=== PATIENT | female | born 1955 | race Caucasian/White ===

== ENCOUNTER 2016-07-06 08:37 | Day surgery (SDC) | payer BC ==
[2016-07-06] MEDS ORDERED: LACTATED RINGERS 1,000 ML IV ONE ×2 (09:16→11:40)
[2016-07-06] MEDS ORDERED: MIDAZOLAM 2 MG/2 ML VIAL IVP ONE (10:59)
[2016-07-06] MEDS ORDERED: fentaNYL 250 MCG/5 ML VIAL IVP ONE (10:59)
== END 2016-07-06 08:38 | disposition home or self-care (01) ==
PROC: 0DBP8ZZ Excision of Rectum, Via Natural or Artificial Opening Endoscopic (ICD-10-PCS; principal; 2016-07-06 09:45)
DX: Z12.11 Encounter for screening for malignant neoplasm of colon (principal); K62.1 Rectal polyp; K64.8 Other hemorrhoids; I10 Essential (primary) hypertension; G47.30 Sleep apnea, unspecified
CPT/HCPCS: 45380; J3010; J7120

== ENCOUNTER 2016-08-24 10:07 | Day surgery (SDC) | payer BC ==
[2016-08-24] MEDS ORDERED: MAGNESIUM CITRATE 296 ML BOTTLE PO STA (13:07)
[2016-08-24] MEDS ORDERED: SALINE ENEMA 133 ML BOTTLE RC STA (13:08)
[2016-08-24] MEDS ORDERED: fentaNYL 250 MCG/5 ML VIAL IVP ONE (14:28)
[2016-08-24] MEDS ORDERED: MIDAZOLAM 2 MG/2 ML VIAL IVP ONE (14:28)
[2016-08-24] MEDS ORDERED: LACTATED RINGERS 1,000 ML IV ONE (14:29)
== END 2016-08-24 10:08 | disposition home or self-care (01) ==
PROC: 0DJD8ZZ Inspection of Lower Intestinal Tract, Via Natural or Artificial Opening Endoscopic (ICD-10-PCS; principal; 2016-08-24 12:00)
DX: Z12.11 Encounter for screening for malignant neoplasm of colon (principal); K64.8 Other hemorrhoids; F32.9 Major depressive disorder, single episode, unspecified; F17.210 Nicotine dependence, cigarettes, uncomplicated
CPT/HCPCS: 45378; A9270; J7120

== ENCOUNTER 2016-10-09 09:19 | Outpatient (CLI) | payer BC | END 2016-10-09 09:20 | disposition home or self-care (01) | DX: N64.4 Mastodynia (principal) ==

== ENCOUNTER 2016-10-10 11:49 | Outpatient (CLI) | payer BC ==
[2016-10-10] MEDS ORDERED: IOPAMIDOL-300 100 ML VIAL IVP ONE (13:04)
[2016-10-10] MEDS ORDERED: IOPAMIDOL-300 50 ML VIAL PO ONE (20:40)
== END 2016-10-10 11:50 | disposition home or self-care (01) ==
DX: R91.8 Other nonspecific abnormal finding of lung field (principal); R10.9 Unspecified abdominal pain
CPT/HCPCS: 36415; 74177; 82565; Q9967

== ENCOUNTER 2017-03-04 06:23 | Day surgery (SDC) | payer BC ==
[2017-03-04] MEDS ORDERED: LACTATED RINGERS 1,000 ML IV ONE ×2 (07:07→09:25)
[2017-03-04] MEDS ORDERED: fentaNYL 100 MCG/2 ML VIAL IVP ONE (07:34)
[2017-03-04] MEDS ORDERED: MIDAZOLAM 2 MG/2 ML VIAL IVP ONE (07:34)
[2017-03-04] MEDS ORDERED: ONDANSETRON 4 MG/2 ML VIAL IVP ONE (07:34)
[2017-03-04] MEDS ORDERED: PROPOFOL 200 MG/20 ML VIAL IVP ONE (09:30)
[2017-03-04] MEDS ORDERED: LIDOCAINE-MPF 2% 5 ML VIAL IM ONE (09:30)
[2017-03-04] MEDS: fentaNYL 100 MCG/2 ML VIAL ONE ×2 (10:05→10:09)
[2017-03-04] MEDS ORDERED: HYDROmorphone 1 MG/ML AMP ONE (10:17)
[2017-03-04 11:19] VITALS: BP 136/78
== END 2017-03-04 06:24 | disposition home or self-care (01) ==
LOC: SDS 06:23
PROVIDERS: ATTEND Surgery
PROC: 0DBP8ZX Excision of Rectum, Via Natural or Artificial Opening Endoscopic, Diagnostic (ICD-10-PCS; principal; 2017-03-04 07:30)
DX: Z12.11 Encounter for screening for malignant neoplasm of colon (principal); K62.1 Rectal polyp
CPT/HCPCS: 45380; 88305; J7120; J1170

== ENCOUNTER 2018-03-01 13:48 | Outpatient (CLI) | payer BC ==
--- NOTE | 2018-03-01 16:45 | Ultrasound Report ---
Reason: SCREEN, CVD Procedure Date: 03/01/2018 Accession Number: [id number] / [id number] Procedure: US - Carotid Doppler Complete CPT Code: FULL RESULT: EXAM: BILATERAL CAROTID AND VERTEBRAL ARTERY DUPLEX DOPPLER ULTRASOUND: EXAM DATE: 03/01/2018 03:41 PM CLINICAL HISTORY: Screen, cerebrovascular disease. COMPARISON: None. TECHNIQUE: Grayscale imaging, color Doppler, and duplex spectral Doppler were used to evaluate the carotid and vertebral arteries bilaterally. Static images were obtained. FINDINGS: Shadowing hypoechoic plaque is identified in both carotid bulb regions, subjectively less than 50% where assessable. No hemodynamically significant plaque is identified in the right or left common or internal carotid arteries. Normal antegrade flow is present in bilateral vertebral arteries. VELOCITIES (cm/sec): Right CCA mid: PSV 68 cm/sec CCA dist: PSV 65 cm/sec ICA prox: PSV 97 cm/sec, EDV 31 cm/sec ICA mid: PSV 76 cm/sec, EDV 29 cm/sec ICA dist: PSV 87 cm/sec, EDV 34 cm/sec ECA: PSV 113 cm/sec Vert: PSV 49 cm/sec ICA/CCA: 1.49 Left CCA mid: PSV 64 cm/sec CCA dist: PSV 62 cm/sec ICA prox: PSV 81 cm/sec, EDV 31 cm/sec ICA mid: PSV 76 cm/sec, EDV 33 cm/sec ICA dist: PSV 77 cm/sec, EDV 29 cm/sec ECA: PSV 119 cm/sec Vert: PSV 49 cm/sec ICA/CCA: 1.30 ICA diameter stenosis: Right: <50% by velocity and <70% by NASCET criteria. Left: <50% by velocity and <70% by NASCET criteria. IMPRESSION: 1. No hemodynamically significant bilateral carotid artery plaquing. 2. In the right carotid artery there are no elevated carotid artery velocities to suggest hemodynamically significant stenosis. 3. In the left carotid artery there are no elevated carotid artery velocities to suggest hemodynamically significant stenosis. 4. Normal antegrade flow is present in bilateral vertebral arteries. General Recommendations: Stenosis =50% ICA - Follow-up ultrasound 6-12 months Stenosis <50% ICA - High Risk Patient with plaque - Follow-up ultrasound 1-2 years Normal Study but High Risk Patient - Follow-up ultrasound 3-5 years Management recommendations and diagnostic criteria are based on current IAC endorsed standards in Carotid Artery Stenosis: Grayscale and Doppler Ultrasound Diagnosis. Validated velocity measurements with angiographic measurements and velocity criteria are extrapolated from diameter data as defined by the Society of Radiologists in Ultrasound Consensus Conference Radiology 2003; 229;340-346. RADIA
== END 2018-03-01 13:49 | disposition home or self-care (01) ==
LOC: DI 13:48
PROVIDERS: ATTEND Naturopath
DX: Z13.6 Encounter for screening for cardiovascular disorders (principal)
CPT/HCPCS: 93880

== ENCOUNTER 2018-06-22 23:09 | Emergency (ER) | payer BC ==
[2018-06-22 23:17] VITALS: BP 169/65
--- NOTE | 2018-06-22 23:30 | ED Physician Documentation ---
History of Present Illness - Stated complaint Stated Complaint: R FOOT PX - Chief complaint Chief Complaint: Ext Problem - History obtained from History obtained from: Patient - History of Present Illness Timing: Today Pain level max: 6 Pain level now: 4 - Additonal information Additional information: Patient states that she developed right foot pain tonight. Does not recall any injury. Worse with walking and better with rest. 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 Systems Constitutional: denies: Fever, Chills Ears: denies: Ear pain Nose: denies: Rhinorrhea / runny nose, Congestion Respiratory: denies: Cough GI: denies: Abdominal Pain, Nausea, Vomiting, Diarrhea Skin: denies: Rash Musculoskeletal: denies: Neck pain, Back pain Neurologic: denies: Headache PD PAST MEDICAL HISTORY - Past Medical History Cardiovascular: None Respiratory: Sleep apnea Endocrine/Autoimmune: None GI: Colon polyps : None HEENT: Chronic vision loss Psych: Depression Musculoskeletal: Osteoarthritis Derm: None - Past Surgical History Past Surgical History: No General: Colonoscopy Ortho: Other /IN STORE DEMONSTRATOR: Other - Present Medications Home Medications: Ambulatory Orders Medication Instructions Recorded Confirmed Trazodone HCl 100 mg PO DAILY 07/23/14 07/06/16 Cholecalciferol (Vitamin D3) 4,000 unit PO DAILY 07/06/16 07/06/16 [Vitamin D] Ibuprofen [Motrin] 800 mg PO Q8H PRN #30 tablet 06/23/18 - Allergies Allergies/Adverse Reactions: Allergies Allergy/AdvReac Type Severity Reaction Status Date / Time bupropion HCl * Allergy Hives Verified 06/22/18 23:17 [From Wellbutrin] - Social History Does the pt smoke?: No Smoking Status: Never smoker Does the pt drink ETOH?: No - Immunizations Immunizations are current?: Yes PD ED PE NORMAL - Vitals Vital signs reviewed: Yes - General General: Alert and oriented X 3, No acute distress - HEENT HEENT: Moist mucous membranes - Neck Neck: Supple, no meningeal sign - Derm Derm: Warm and dry, No rash - Extremities Extremities: Other (Mild swelling and ecchymosis to the lateral aspect of the dorsum of the right foot. Mild tenderness along the fourth metatarsal. Neurovascularly intact. Otherwise normal examination of the foot and ankle) - Neuro Neuro: Alert and oriented X 3 Results - Vitals Vitals: Vital Signs - 24 hr 06/22/18 23:13 Temperature 36.0 C L Heart Rate 81 Respiratory 16 Rate Blood Pressure 169/65 H O2 Saturation 98 Oxygen O2 Source Room air - Rads (name of study) R foot xray Radiology: Prelim report reviewed, EMP read contemporaneously, See rad report (normal) PD MEDICAL DECISION MAKING - ED course Complexity details: reviewed results, re-evaluated patient, considered differential, d/w patient ED course: 63-year-old female with right foot pain of unclear etiology. Possible strain versus stress fractures? Placed in a postoperative shoe for comfort. Will utilize Motrin at home for pain. Neurovascular intact. Negative x-ray. Patient counseled regarding signs and symptoms for which I believe and urgent re-evaluation would be necessary. Patient with good understanding of and agreement to plan and is comfortable going home at this time This document was made in part using voice recognition software. While efforts are made to proofread this document, sound alike and grammatical errors may occur. Departure - Departure Disposition: 01 Home, Self Care Clinical Impression: Right foot strain Qualifiers: Encounter type: initial encounter Qualified Code(s): S96.911A - Strain of unspecified muscle and tendon at ankle and foot level, right foot, initial encounter Condition: Good Instructions: ED Sprain Foot Follow-Up: Jessika Rodgers MD [Primary Care Provider] - Within 1 week Prescriptions: Ibuprofen [Motrin] 800 mg PO Q8H PRN #30 tablet PRN Reason: PAIN &/OR FEVER Comments: Use the postoperative shoe for the next week to help with the pain. If you are still having pain in 1 week, you should follow-up with your doctor for further evaluation and care. Your x-rays are normal tonight.
--- NOTE | 2018-06-22 23:58 | XRAY Report ---
Reason: R foot pain, no injury Procedure Date: 06/22/2018 Accession Number: [id number] / [id number] Procedure: XR - Foot 3 View RT CPT Code: FULL RESULT: EXAM: RIGHT FOOT RADIOGRAPHY EXAM DATE: 06/22/2018 11:34 PM. CLINICAL HISTORY: Right foot pain, no injury. COMPARISON: None. TECHNIQUE: 3 views. FINDINGS: Bones: Normal. No fractures or bone lesions. Joints: Normal. No subluxations. Soft Tissues: Normal. No soft tissue swelling. IMPRESSION: Normal foot radiography. RADIA
[2018-06-23] MEDS: IBUPROFEN 400 MG TABLET PO STA (00:14)
== END 2018-06-23 00:17 | disposition home or self-care (01) ==
LOC: ED 23:09
DX: S96.911A Strain of unspecified muscle and tendon at ankle and foot level, right foot, initial encounter (principal); X58.XXXA Exposure to other specified factors, initial encounter
CPT/HCPCS: 99283

== ENCOUNTER 2018-10-26 09:03 | Outpatient (CLI) | payer BC ==
--- NOTE | 2018-10-26 12:23 | Mammography Report ---
Reason: SCREENING MAMMO Procedure Date: 10/26/2018 Accession Number: [id number] / [id number] Procedure: SEBASTIAN - Screening Mammo w/Paul CPT Code: FULL RESULT: EXAM: Screening Mammo w/Paul DATE: 10/26/2018 9:30 AM CLINICAL HISTORY: Routine screening TECHNIQUE: (B) - Bilateral CC and MLO views were obtained. COMPARISON: 10/09/2016, 11/07/2011, 09/04/2010 and 07/01/2009 PARENCHYMAL PATTERN: (A) - The breasts demonstrate scattered fibroglandular densities bilaterally. FINDINGS: No significant interval change. There are no suspicious masses, calcifications, or areas of distortion. IMPRESSION: Negative examination. BI-RADS category 1. RECOMMENDATION: (ANNUAL) - Recommend routine annual screening mammography. BI-RADS CATEGORY: (1) - Negative. STANDARD QUALIFYING STATEMENTS: 1. This examination was not reviewed with the aid of Computer-Aided Detection (CAD). 2. A negative or benign imaging report should not preclude biopsy if clinically suspicious findings are present. 3. Dense breasts may obscure an underlying neoplasm. 4. This examination was reviewed with the aid of 3D breast imaging (tomosynthesis).
== END 2018-10-26 09:04 | disposition home or self-care (01) ==
LOC: DI 09:03
PROVIDERS: ATTEND Internal Medicine
DX: Z12.31 Encounter for screening mammogram for malignant neoplasm of breast (principal)
CPT/HCPCS: 77063; 77067

== ENCOUNTER 2019-03-30 14:12 | Emergency (ER) | payer BC ==
--- NOTE | 2019-03-30 14:47 | ED Physician Documentation ---
PD HPI UPPER EXT INJURY - Stated complaint Stated Complaint: GLF/ELBOW PX - Chief complaint Chief Complaint: Ext Problem - History obtained from History obtained from: Patient - History of Present Illness Location: Left, Elbow, Wrist Type of injury: Fall Where injury occurred: Home Timing - onset: Today Timing - duration: Hours Timing - details: Abrupt onset, Still present Improved by: Rest, Ice, Immobilization Worsened by: Moving, Palpating Associated symptoms: Swelling. No: Weakness, Tingling Similar symptoms before: Has not had sx before Recently seen: Not recently seen - Additonal information Additional information: 64-year-old female was on a chair change in the water in her fish tank when the chair gives way and she falls to the ground injuring her left elbow. Review of Systems Constitutional: denies: Fever Ears: denies: Ear pain Respiratory: denies: Cough GI: denies: Vomiting Musculoskeletal: reports: Extremity pain, Joint pain. 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 - Present Medications Home Medications: Ambulatory Orders Medication Instructions Recorded Confirmed Trazodone HCl 100 mg PO DAILY 07/23/14 07/06/16 Cholecalciferol (Vitamin D3) 4,000 unit PO DAILY 07/06/16 07/06/16 [Vitamin D] Ibuprofen [Motrin] 800 mg PO Q8H PRN #30 tablet 06/23/18 Hydrocodone/Acetaminophen 1 - 2 each PO Q6H PRN #14 tablet 03/30/19 [Hydrocodon-Acetaminophen 5-325] - Allergies Allergies/Adverse Reactions: Allergies Allergy/AdvReac Type Severity Reaction Status Date / Time bupropion HCl * Allergy Hives Verified 03/30/19 14:17 [From Wellbutrin] - Social History Does the pt smoke?: No Smoking Status: Never smoker Does the pt drink ETOH?: No - Immunizations Immunizations are current?: Yes - POLST Patient has POLST: No PD ED PE NORMAL - Vitals Vital signs reviewed: Yes (hypertensive ) - General General: Alert and oriented X 3, No acute distress, Well developed/nourished - HEENT HEENT: PERRL, EOMI, Other (There is an abrasion to the left cheek without tenderness to the zygomatic arch or the orbital rim. ) - Neck Neck: Supple, no meningeal sign, No bony TTP - Cardiac Cardiac: RRR, No murmur - Respiratory Respiratory: No respiratory distress, Clear bilaterally - Back Back: No CVA TTP, No spinal TTP - Derm Derm: Normal color, Warm and dry, No rash - Extremities Extremities: Other (There is deformity and tenderness to the left elbow. It is held in flexion and the patient does not want to share ROM. There is tenderness to the distal radius and pain with ROM of the wrist. Distal n/v is intact. 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 Distracted comminuted olecranon fracture. Radial head neck fracture. Possible radial capitellar subluxation. Recommend repeat frontal views), EMP read indepedently, See rad report Procedures - Splint (location) left elbow Splint applied by: Tech Type of splint: Fiberglass, Posterior Other: Patient tolerated well, No complications, Neurovascular intact, Good alignment, Sling provided PD MEDICAL DECISION MAKING - ED course Complexity details: reviewed results, re-evaluated patient, considered differential, d/w patient, d/w family, d/w tanning consultant (Tomas: After careful review of films there is a possible need for a radial head prosthesis. This will not be available tomorrow and the surgeon is leaving the following day without a surgeo n available here until later in the week. ) ED course: 64-year-old female is fallen off of a chair and fractured her left elbow. She has not distracted olecranon process fracture and a fracture of the radial head. Initial arrangements were made for the patient have operation done here and after further review of films this does not look like it will be able to be done here. The surgeon is leaving the day following and there is a possible need for a radial head prosthesis. Departure - Departure Disposition: 01 Home, Self Care Clinical Impression: Fracture of left olecranon process Qualifiers: Encounter type: initial encounter Fracture type: closed Qualified Code(s): S52.022A - Displaced fracture of olecranon process without intraarticular extension of left ulna, initial encounter for closed fracture Condition: Stable Instructions: ED Fx Upper Ext Follow-Up: Jessika Rodgers MD [Primary Care Provider] - [facility] [Provider Group] [facility] [Provider Group] [facility] [Provider Group] Prescriptions: Hydrocodone/Acetaminophen [Hydrocodon-Acetaminophen 5-325] 1 - 2 each PO Q6H PRN #14 tablet PRN Reason: pain Discharge Date/Time: 03/30/19 17:35
[2019-03-30] MEDS ORDERED: KETOROLAC 60 MG/2 ML VIAL IM STA (15:14)
--- NOTE | 2019-03-30 15:22 | XRAY Report ---
Reason: fall wrist pain Procedure Date: 03/30/2019 Accession Number: [id number] / [id number] Procedure: XR - Wrist 4 View LT CPT Code: Final Report FULL RESULT: EXAM: LEFT WRIST RADIOGRAPHY EXAM DATE: 03/30/2019 03:14 PM. CLINICAL HISTORY: Fall wrist pain. COMPARISON: WRIST 4 VIEW RT 03/04/2015 6:06 PM. TECHNIQUE: 3 views. FINDINGS: Bones: Tiny osseous fragment is seen along the posterior margin of the carpal bones, most consistent with a triquetral fracture. Mild over lungs are tissue swelling. No malalignment. . Joints: Normal. No subluxations. Soft Tissues: Normal. No soft tissue swelling. IMPRESSION: Findings concerning for a tiny/avulsion triquetral fracture with overlying soft tissue swelling. No malalignment. RADIA
--- NOTE | 2019-03-30 15:30 | XRAY Report ---
Reason: elbow pain Procedure Date: 03/30/2019 Accession Number: [id number] / [id number] Procedure: XR - Elbow 3 View LT CPT Code: Final Report FULL RESULT: EXAM: LEFT ELBOW RADIOGRAPHY EXAM DATE: 03/30/2019 03:14 PM. CLINICAL HISTORY: Elbow pain. COMPARISON: None. TECHNIQUE: 3 views. FINDINGS: Frontal view is oblique Bones: Comminuted olecranon fracture extending into the coronoid with 1.7 cm separation. Radial head and neck fracture with fracture fragment of the radial head displaced. Joints: Possible radial capitellar subluxation or dislocation. The fusion Soft Tissues: Soft tissue swelling. IMPRESSION: 1. Distracted comminuted olecranon fracture. 2. Radial head neck fracture. 3. Possible radiocapitellar subluxation. Recommend repeat frontal views RADIA
[2019-03-30] MEDS ORDERED: HYDROcod/ACETAM 5/325 MG TABLET PO STA (16:13)
[2019-03-30 17:35] VITALS: BP 144/81
--- NOTE | 2019-03-30 17:37 | PROVIDER PROGRESS NOTE ---
Subjective - Prog Note Date Prog Note Date: 03/30/19 Prog Note Time: 17:35 - Subjective Subjective: GLF today, sustaining a left elbow fracture subluxation. Objective - Vital Signs/Intake & Output Vital Signs: Vital Signs x48h Temp Pulse Resp BP Pulse Ox 03/30/19 14:17 36.6 C 68 16 146/89 H 99 - Diagnostic Imaging Diagnostic Imaging Comments: XR show left elbow fracture/subluxation. Distracted olecranon fracture with ?radial head fracture and radial capitellium subluxation - Other Results/Comments Other Results/Comments: EXAM: Left UE in splint. Moves fingers ok. Sensation intact Assessment/Plan - Problem List (1) Fracture subluxation of left elbow joint Impression: Closed injury. Neurovascularly intact PLAN: Since there will be no orthopedic coverage this weekend, recommend transfer of care to outside facility for evaluation and probable surgery next week. Qualifiers: Encounter type: initial encounter Fracture type: closed Qualified Code(s): S42.402A - Unspecified fracture of lower end of left humerus, initial encounter for closed fracture
--- NOTE | 2019-03-30 20:23 | CONSULTATION NOTE ---
DATE OF SERVICE: 03/30/2019 Physician: Peng Tomas MD REFERRING PHYSICIAN: Dr. Nathen Stevenson of the emergency room department. CHIEF COMPLAINT: "I broke my left elbow." HISTORY OF PRESENT ILLNESS: Patient is a 64-year-old woman who apparently had a fall, land ing on her left flexed elbow. She noted immediate pain and deformity at the elbow. No distal weakne ss and numbness noted. Was taken to the emergency room here at [facility], where her e valuation included x-rays which demonstrated a distracted left olecranon fracture with an associated subluxation of her radial capitellum joint and probable radial head fracture. PHYSICAL EXAMINATION: Patient was currently in a long-arm posterior splint for upper extremity. She is able to move her fingers satisfactory. Sensation was intact. Good capillary filling of the digi ts noted. ASSESSMENT: Closed left elbow fracture/subluxation. PLAN: Because there would be no orthopedic coverage this weekend and the fact that she has a rather complex elbow injury that likely would require surgical fixation of olecranon fracture and possibly a radial head prostheses, I have recommended patient be referred to an outside facility. Can be evalu ated and had probable surgery next week. TD: 03/30/2019 17:45
== END 2019-03-30 17:35 | disposition home or self-care (01) ==
LOC: ED 14:12
DX: S52.022A Displaced fracture of olecranon process without intraarticular extension of left ulna, initial encounter for closed fracture (principal); S52.132A Displaced fracture of neck of left radius, initial encounter for closed fracture; S00.81XA Abrasion of other part of head, initial encounter; W17.89XA Other fall from one level to another, initial encounter; Y93.89 Activity, other specified; Y92.009 Unspecified place in unspecified non-institutional (private) residence as the place of occurrence of the external cause
CPT/HCPCS: 29105; 73080; 73110; 99283; 99284; A9270

== ENCOUNTER 2019-07-26 10:30 | Outpatient (CLI) | payer BC ==
--- NOTE | 2019-07-31 13:22 | DEXA Report ---
Reason: OSTEOPENIA Procedure Date: 07/26/2019 Accession Number: [id number] / [id number] Procedure: DEX - Dexa Spine and/or Hip CPT Code: Final Report FULL RESULT: EXAM: Dexa Spine and/or Hip DATE: 07/26/2019 11:30 AM CLINICAL HISTORY: OSTEOPENIA TECHNIQUE: Dual energy x-ray absorptiometry (DXA) was performed on a [employer] System. Regions measured are the AP Spine, femoral neck, and if needed forearm. COMPARISON: None. In accordance with the International Society for Clinical Densitometry (ISCD) guidelines, data from previous exams may be reanalyzed using current recommendations and techniques. This is done to allow a more accurate basis for comparison with the current study. FINDINGS: The data for the lumbar spine is as follows: BMD (g/cm/cm) T-SCORE Z-SCORE REGION L1 0.950 -1.5 -0.6 L2 0.851 -2.9 -2.0 L3 0.963 -2.0 -1.0 L4 0.772 -3.6 -2.6 TOTAL 0.878 -2.5 -1.6 NOTE: All evaluable vertebrae are used for classification The data for the hip is as follows: BMD (g/cm/cm) T-SCORE Z-SCORE REGION Neck 0.843 -1.4 -0.3 TOTAL 0.828 -1.4 -0.7 NOTE: The femoral neck or total proximal femur, whichever is lowest, is used for classification. IMPRESSION: THE WHO CLASSIFICATION BASED ON THE INTERNATIONAL REFERENCE STANDARD IS OSTEOPOROSIS. THE FRACTURE RISK IS HIGH. RECOMMENDATION: Patients with diagnosis of osteoporosis or osteopenia should have regular bone mineral density assessment. For those eligible for Medicare, routine testing is allowed once every 2 years. Testing frequency can be increased for patients who have rapidly progressing disease or for those who are receiving medical therapy to restore bone mass. COMMENT: World Health Organization (WHO) definitions for osteoporosis and osteopenia: NORMAL BMD: T-score at -1.0 or higher, fracture risk is low OSTEOPENIA BMD: T-score between -1.0 and -2.5, fracture risk is increased. OSTEOPOROSIS BMD: T-score at -2.5 or lower, fracture risk is high. National Osteoporosis Foundation recommends: 1. Obtain adequate dietary calcium (at least 1200 mg per day) and vitamin D (400-800 international units per day). 2. Participate, as appropriate, in regular weightbearing and muscle-strengthening exercise. 3. Avoid tobacco use and reduce alcohol and caffeine intake. 4. For more detailed information see the website at www.NOF.org.
== END 2019-07-26 10:31 | disposition home or self-care (01) ==
LOC: DI 10:30
PROVIDERS: ATTEND Internal Medicine
DX: M81.0 Age-related osteoporosis without current pathological fracture (principal)
CPT/HCPCS: 77080

== ENCOUNTER 2019-09-21 08:00 | Outpatient (CLI) | payer BC | END 2019-09-21 23:59 | disposition home or self-care (01) | LOC: LAB.R 08:00 | PROVIDERS: ATTEND Internal Medicine | DX: R19.7 Diarrhea, unspecified (principal) | CPT/HCPCS: 81599; 83630; 87045; 87046; 87177; 87209; 87329; 87493 ==

== ENCOUNTER 2019-10-10 10:06 | Outpatient (CLI) | payer BC | END 2019-10-10 10:07 | disposition home or self-care (01) | LOC: LAB 10:06 | PROVIDERS: ATTEND Internal Medicine | DX: R19.7 Diarrhea, unspecified (principal) | CPT/HCPCS: 36415; 84443 ==

== ENCOUNTER 2019-12-14 13:00 | Outpatient (CLI) | payer BC | END 2019-12-14 13:01 | disposition home or self-care (01) | LOC: COV 13:00 | PROVIDERS: ATTEND Family Medicine | DX: Z01.812 Encounter for preprocedural laboratory examination (principal); Z11.59 Encounter for screening for other viral diseases ==

== ENCOUNTER 2020-02-01 12:35 | Outpatient (CLI) | payer BC | END 2020-02-01 12:36 | disposition home or self-care (01) | LOC: LAB 12:35 | PROVIDERS: ATTEND Internal Medicine | DX: R19.7 Diarrhea, unspecified (principal) | CPT/HCPCS: 36415; 81599; 82784; 83516 ==

== ENCOUNTER 2022-05-21 08:00 | Outpatient (CLI) | payer BC ==
[2022-05-21 16:27] LABS: BILIRUBIN,URINE NEGATIVE (NEGATIVE); GLUCOSE, URINE (UA) NEGATIVE (NEGATIVE); KETONES,URINE (UA) NEGATIVE (NEGATIVE); LEUKOCYTE ESTERASE, URINE NEGATIVE (NEGATIVE); NITRITE,URINE NEGATIVE (NEGATIVE); OCCULT BLOOD,URINE NEGATIVE (NEGATIVE); PROTEIN,URINE NEGATIVE (NEGATIVE); UROBILINOGEN,URINE 0.2 (NORMAL) E.U./dL (NORMAL)
[2022-05-21 16:29] LABS: BASOPHILS % (AUTO) 0.7 %; EOSINOPHILS # (AUTO) 0.1 10^3/uL (0.0-0.7); EOSINOPHILS % (AUTO) 2.3 %; HCT - HEMATOCRIT 43.9 % (37.0-47.0); HGB - HEMOGLOBIN 14.3 g/dL (12.0-16.0); LYMPHOCYTES # (AUTO) 1.6 10^3/uL (1.5-3.5); LYMPHOCYTES % (AUTO) 27.1 %; MEAN CORPUSCULAR HEMOGLOBIN 27.7 pg (27.0-31.0); MEAN CORPUSCULAR HGB CONC 32.6 g/dL (32.0-36.0); MEAN CORPUSCULAR VOLUME 85.1 fL (81.0-99.0); MEAN PLATELET VOLUME 10.7 fL (7.9-10.8); MONOCYTES # (AUTO) 0.3 10^3/uL (0.0-1.0); MONOCYTES % (AUTO) 5.6 %; NEUTROPHILS # (AUTO) 3.9 10^3/uL (1.5-6.6); NEUTROPHILS % (AUTO) 64.1 %; PLT - PLATELET COUNT 213 10^3/uL (130-450); RED BLOOD COUNT 5.16 10^6/uL (4.20-5.40); RED CELL DISTRIBUTION WIDTH 13.1 % (12.0-15.0); WHITE BLOOD COUNT 6.1 x10^3/uL (4.8-10.8)
[2022-05-21 16:34] LABS: CLARITY,URINE CLEAR (CLEAR)
[2022-05-21 16:48] LABS: BACTERIA,URINE Rare /HPF (None Seen); RBC,URINE 0-5 /HPF (0-5); SQUAMOUS EPITHELIAL CELL,UR NONE SEEN (<= Few); WBC,URINE 0-3 /HPF (0-5)
[2022-05-21 16:50] LABS: ALBUMIN 4.1 g/dL (3.2-5.5); ALBUMIN/GLOBULIN RATIO 1.5 (1.0-2.2); ALKALINE PHOSPHATASE 63 IU/L (42-121); ALT ALANINE AMINOTRANSFERASE 39 IU/L (10-60); AST ASPARTATE AMINOTRANSFERASE 27 IU/L (10-42); BILIRUBIN,TOTAL 0.8 mg/dL (0.2-1.0); BUN - BLOOD UREA NITROGEN 11 mg/dL (6-20); CALCIUM 9.2 mg/dL (8.5-10.3); CARBON DIOXIDE - CO2 25 mmol/L (21-32); CHLORIDE 99 mmol/L (101-111); CHOLESTEROL 322 mg/dL; CREATININE 0.8 mg/dL (0.4-1.0); GFR - MDRD 71 (>89); GLUCOSE 114 mg/dL (70-100); HDL CHOLESTEROL 54 mg/dL; LDL CHOLESTEROL,CALCULATED 240 mg/dL; LDL/HDL RATIO 4.4 (<4.4); POTASSIUM 4.1 mmol/L (3.5-5.0); SODIUM 132 mmol/L (135-145); TOTAL PROTEIN 6.9 g/dL (6.7-8.2); TRIGLYCERIDES 140 mg/dL; VLDL CHOLESTEROL 28 mg/dL
[2022-05-21 20:22] LABS: ESTIMATED AVERAGE GLUCOSE 123 mg/dL (70-100); HEMOGLOBIN A1c% 5.9 % (4.27-6.07)
== END 2022-05-21 23:59 | disposition home or self-care (01) ==
LOC: LAB.R 08:00
PROVIDERS: ATTEND Internal Medicine
DX: Z00.00 Encounter for general adult medical examination without abnormal findings (principal); F32.A Depression, unspecified; K52.9 Noninfective gastroenteritis and colitis, unspecified; Z80.1 Family history of malignant neoplasm of trachea, bronchus and lung; E78.5 Hyperlipidemia, unspecified; R73.01 Impaired fasting glucose; M25.569 Pain in unspecified knee; R91.8 Other nonspecific abnormal finding of lung field; G62.9 Polyneuropathy, unspecified; G47.33 Obstructive sleep apnea (adult) (pediatric); M81.0 Age-related osteoporosis without current pathological fracture; N39.3 Stress incontinence (female) (male); Z79.899 Other long term (current) drug therapy
CPT/HCPCS: 80053; 80061; 81001; 82306; 83036; 83721; 84443; 85025; 87086

== ENCOUNTER 2022-05-27 13:58 | Outpatient (CLI) | payer BC ==
--- NOTE | 2022-05-28 13:03 | Mammography Report ---
BILATERAL DIGITAL SCREENING MAMMOGRAM 3D/2D: 05/27/2022 CLINICAL: Routine screening. Comparison is made to exams dated: 10/26/2018 mammogram, 10/09/2016 mammogram, and 10/07/2011 mammogram - [facility]. There are scattered areas of fibroglandular density in both breasts (category b / 25%-50% glandular t issue). No significant masses, calcifications, or other findings are seen in either breast. There has been no significant interval change. IMPRESSION: NEGATIVE There is no mammographic evidence of malignancy. A 1 year screening mammogram is recommended. Based on the Tyrer Cuzick model (a risk assessment model) the patients lifetime risk is 5.1% and her 10 year risk is 2.8%. According to the ACR, ACS, and NCCN guidelines, an annual breast MRI exam yosef g with mammogram is recommended if the patients lifetime risk is 20% or greater. This exam was interpreted at Station ID: [id number]. NOTE: For mammograms, a report in lay terms will be sent to the patient. Approximately 15% of breast malignancies will not be visualized mammographically. In the management of a palpable breast mass, a negative mammogram must not discourage biopsy of a clinically suspicious lesion. Electronically Signed By: Govind gomez/rosy:05/27/2022 16:46:29 ACR BI-RADS Category 1: Negative [id number] PARENCHYMAL PATTERN: (A) - The breast(s) demonstrate(s) scattered fibroglandular densities. BI-RADS CATEGORY: (1) - 1 RECOMMENDATION: (ANNUAL) - Recommend routine annual screening mammography. [id number] 1 year screening LATERALITY: (B)
== END 2022-05-27 13:59 | disposition home or self-care (01) ==
LOC: DI 13:58
PROVIDERS: ATTEND Internal Medicine
DX: Z12.31 Encounter for screening mammogram for malignant neoplasm of breast (principal)

== ENCOUNTER 2022-06-26 13:01 | Outpatient (CLI) | payer BC ==
--- NOTE | 2022-06-29 16:06 | CT Report ---
PROCEDURE: CHEST WO INDICATIONS: PULMONARY NODULES TECHNIQUE: Noncontrast 1mm axial images were acquired from the pulmonary apices to the posterior costophrenic an gles. Axial 5 mm soft tissue kernel reconstructions were performed as well as 8 mm axial MIP and cor onal and sagittal 5 mm reformations. For radiation dose reduction, the following was used: automate d exposure control, adjustment of mA and/or kV according to patient size. COMPARISON: [facility], CT chest without, 08/02/2018. FINDINGS: Image quality: Excellent. Lungs and pleura: Multiple pulmonary nodules are present, unchanged in size. Reference nodules are l isted in following: Nodule 1: 5 mm; series 4, image 109; left upper lobe. Nodule 2: 3 mm; series 4 image 137; left lower lobe behind the major fissure. Nodule 3: 5 mm; series 4 image 136; right middle lobe along the minor fissure. Moderate centrilobular emphysema. No acute air space opacities. No pleural effusions or pneumothorax . Central and peripheral airways are patent and normal in caliber. Mediastinum: Heart size is normal. No pericardial effusion. No mediastinal adenopathy by size crit eria. Thoracic aorta and central pulmonary arteries are normal in size. Esophagus is normal in gina regine. Small hiatal hernia. Bones and chest wall: No suspicious bony lesions. No vertebral body compression fractures. No axil alvina or supraclavicular adenopathy by size criteria. The thyroid is normal in size and there are no incidental findings. Abdomen: Visualized upper abdominal solid organs and bowel loops appear normal in the absence of con trast. IMPRESSION: 1. Stable lung nodules. 2. Moderate emphysema. Fleischner Society criteria for SOLID lung nodule followup. Nodule size (mm)Low-risk patientHigh-risk patient "d4No follow-up neededFollow-up at 12 mo; if no change, no further follow-up >[id number] CT at 12 mo; if no change, no further follow-up needed.Initial follow-up CT at 6-12 mo, then 18-24 mo if no change. >6-8Initial follow-up CT at 6-12 mo, then 18-24 mo if no change. Initial follow-up CT at 3-6 mo, then 9-12 mo and 24 mo if no change. >8Follow-up CT at 3, 9, 24 mo. Or PET and/or biopsy.Same as for low-risk pts. Fleischner Society criteria for SUB-SOLID lung nodule followup. Solitary pure ground-glass nodules 5 mm or lessNo followup needed. >5 mm3 mo follow-up CT to confirm persistence. Then annual CT for 3 years. Part-solid nodules3 mo follow-up CT to confirm persistence. If persistent with solid component <5 mm , annual CT for at least 3 years. If solid component is 5 mm or more, biopsy or surgical resection. Consider PET-CT for lesions > 10 mm. Multiple sub-solid nodules Pure ground glass nodules [address] at 2 and 4 years. Pure ground glass nodules >5 mm without dominant lesion. [address] to confirm persistence, then annual followup CT for at least 3 years. Dominant nodule(s) with part-solid or solid component. [address] to confirm persistence. If persistent, consider biopsy or surgical resection, lex if lesions have >5 mm solid component. Reviewed by: Razia Anderson MD on 06/29/2022 4:04 PM PST Approved by: Razia Anderson MD on 06/29/2022 4:04 PM PST Station ID: [id number]
== END 2022-06-26 13:02 | disposition home or self-care (01) ==
LOC: DI 13:01
PROVIDERS: ATTEND Internal Medicine
DX: R91.8 Other nonspecific abnormal finding of lung field (principal); J43.9 Emphysema, unspecified

== ENCOUNTER 2022-07-09 08:00 | Outpatient (CLI) | payer BC ==
[2022-07-09 21:41] LABS: BACTERIAL VAGINOSIS DNA NEGATIVE (NEGATIVE); CANDIDA GLABRATA DNA NEGATIVE (NEGATIVE); CANDIDA GROUP DNA NEGATIVE (NEGATIVE); CANDIDA KRUSEI DNA NEGATIVE (NEGATIVE); TRICHOMONAS VAGINALIS DNA NEGATIVE (NEGATIVE)
== END 2022-07-09 23:59 | disposition home or self-care (01) ==
LOC: LAB.WC 08:00
PROVIDERS: ATTEND Obstetrics & Gynecology
DX: N76.0 Acute vaginitis (principal)
CPT/HCPCS: 81514

== ENCOUNTER 2022-09-08 15:38 | Outpatient (CLI) | payer BC ==
--- NOTE | 2022-09-08 17:13 | DEXA Report ---
PROCEDURE: Dexa Spine and/or Hip INDICATIONS: OSTEOPOROSIS, LOW BACK PAIN TECHNIQUE: Dual energy x-ray absorptiometry (DXA) was performed on a Naow System. Regions measur ed are the AP Spine, femoral neck, and if needed forearm. COMPARISON: DEXA, 07/26/2019. FINDINGS: Lumbar Spine: Bone Mineral Density 0.921 g/cm/cm,T score -2.2, osteopenia. Left Femoral Neck: Bone Mineral Density 0.807 g/cm/cm, T score -1.7, osteopenia Left Hip: Bone Mineral Density 0.815 g/cm/cm,T score -1.5, osteopenia (T score greater or equal to -1.0: NORMAL) (T score from -1.1 to -2.4: OSTEOPENIA) (T score less than or equal to -2.5 to: OSTEOPOROSIS) Impression: Based on WHO criteria, the patient has osteopenia. Compared to the last exam dated 07/26/2019, the pat ient's bone mineral density in lumbar spine has increased by 4.9%. The patient's bone mineral density in left hip is not significantly changed. Patients with diagnosis of osteoporosis or osteopenia should have regular bone mineral density assess ment. For those eligible for Medicare, routine testing is allowed once every 2 years. Testing frequ ency can be increased for patients who have rapidly progressing disease or for those who are receivin g medical therapy to restore bone mass. Reviewed by: Razia Anderson MD on 09/08/2022 5:12 PM PDT Approved by: Razia Anderson MD on 09/08/2022 5:12 PM PDT Station ID: [id number]
--- NOTE | 2022-09-09 07:46 | XRAY Report ---
PROCEDURE: Lumbar Spine 2 View INDICATIONS: osteoporosis, low back pain TECHNIQUE: 2 views of the lumbar spine were acquired. COMPARISON: None. FINDINGS: Bones: 5 [id number] vertebrae are present. There is normal bony alignment. No vertebral body compression fractures. No suspicious bony lesions. Soft tissues: Overlying bowel gas pattern is normal. No suspicious soft tissue calcifications. IMPRESSION: No evidence acute bony abnormality of the lumbar spine. Reviewed by: Tapan Cervantes MD on 09/09/2022 7:45 AM PDT Approved by: Tapan Cervantes MD on 09/09/2022 7:45 AM PDT Station ID: [id number]
== END 2022-09-08 15:39 | disposition home or self-care (01) ==
LOC: DI 15:38
PROVIDERS: ATTEND Internal Medicine
DX: M54.50 Low back pain, unspecified (principal); M85.89 Other specified disorders of bone density and structure, multiple sites

== ENCOUNTER 2023-05-06 08:00 | Outpatient (CLI) | payer BC ==
[2023-05-07 14:07] LABS: BILIRUBIN,URINE NEGATIVE (NEGATIVE); GLUCOSE, URINE (UA) >=1000 mg/dL (NEGATIVE); KETONES,URINE (UA) NEGATIVE (NEGATIVE); LEUKOCYTE ESTERASE, URINE NEGATIVE (NEGATIVE); NITRITE,URINE NEGATIVE (NEGATIVE); OCCULT BLOOD,URINE NEGATIVE (NEGATIVE); PROTEIN,URINE NEGATIVE (NEGATIVE); UROBILINOGEN,URINE 0.2 (NORMAL) E.U./dL (NORMAL)
[2023-05-07 14:17] LABS: BACTERIA,URINE Few /HPF (None Seen); CLARITY,URINE CLEAR (CLEAR); RBC,URINE None Seen /HPF (0-5); SQUAMOUS EPITHELIAL CELL,UR FEW Squamous (<= Few); WBC,URINE 0-3 /HPF (0-5)
== END 2023-05-06 23:59 | disposition home or self-care (01) ==
LOC: LAB 08:00
PROVIDERS: ATTEND Urology
DX: N81.89 Other female genital prolapse (principal)
CPT/HCPCS: 81001; 87086

== ENCOUNTER 2023-06-14 06:23 | Day surgery (SDC) | payer BC ==
[2023-06-14] MEDS ORDERED: ceFAZolin 2 GM VIAL ONE (06:24)
[2023-06-14] MEDS ORDERED: LACTATED RINGERS 1,000 ML IV ONE (06:27)
[2023-06-14] MEDS ORDERED: LIDOCAINE 2% URO-JET 5 ML SYRINGE UR ONE ×2 (07:09→08:05)
[2023-06-14] MEDS ORDERED: ATROPINE ABBOJECT 1 MG/10 ML SYRINGE IVP PRN (07:19)
[2023-06-14] MEDS ORDERED: fentaNYL 100 MCG/2 ML VIAL IVP PRN (07:19)
[2023-06-14] MEDS ORDERED: NALOXONE 0.4 MG/ML VIAL IVP PRN (07:19)
[2023-06-14] MEDS ORDERED: ONDANSETRON 4 MG/2 ML VIAL IVP PRN ×2 (07:19→08:18)
[2023-06-14] MEDS ORDERED: HYDROmorphone 0.5 MG/0.5 ML SYRINGE IVP PRN (07:19)
[2023-06-14] MEDS ORDERED: ePHEDrine 50 MG/ML VIAL IVP PRN (07:19)
[2023-06-14] MEDS ORDERED: MORPHINE 2 MG/ML CARPUJECT IVP PRN (07:19)
[2023-06-14] MEDS ORDERED: METOCLOPRAMIDE 10 MG/2 ML VIAL IVP PRN (07:19)
--- NOTE | 2023-06-14 07:19 | ANESTHESIA ---
Pre-Anesthesia VS, & Labs - Diagnosis bladder mass - Procedure TURBT, cystoscope Vital Signs: Temp Pulse Resp BP Pulse Ox O2 Flow Rate 36.1 C L 66 16 126/74 97 0 06/14/23 06:37 06/14/23 06:37 06/14/23 06:37 06/14/23 06:37 06/14/23 06:37 06/14/23 06:37 Height: 5 ft 3 in Weight (kg): 82 kg Body Mass Index: 32.0 BMI Classification: Obese - NPO >8 hours - Is Patient ?: No Home Medications and Allergies Home Medications: Ambulatory Orders Bismuth Subsalicylate [Pepto-Bismol] 1 tab PO DAILY 06/08/23 Calcium Carb/Magnesium Carb [Cidatrine-Tm 975-232 mg Tablet] 1 each PO DAILY 06/08/23 Cholecalciferol (Vitamin D3) [Vitamin D3] 4,000 unit PO DAILY 06/08/23 Cortisol Homeopathic 06/08/23 Gabapentin [Neurontin] 300 mg PO TID 06/08/23 Glutamine [l-Glutamine] 1,000 mg PO DAILY 06/08/23 Lifitegrast [Xiidra] 1 each OP DAILY 06/08/23 Multivitamin 1 each PO DAILY 06/08/23 Prasterone (Dhea) [Dhea] 25 mg PO DAILY 06/08/23 Red Yeast Rice 1 cap PO DAILY 06/08/23 Bismuth Subsalicylate [Pepto-Bismol] 1 tab PO DAILY 06/08/23 Calcium Carb/Magnesium Carb [Cidatrine-Tm 975-232 mg Tablet] 1 each PO DAILY 06/08/23 Cholecalciferol (Vitamin D3) [Vitamin D3] 4,000 unit PO DAILY 06/08/23 Cortisol Homeopathic 06/08/23 Gabapentin [Neurontin] 300 mg PO TID 06/08/23 Glutamine [l-Glutamine] 1,000 mg PO DAILY 06/08/23 Lifitegrast [Xiidra] 1 each OP DAILY 06/08/23 Multivitamin 1 each PO DAILY 06/08/23 Prasterone (Dhea) [Dhea] 25 mg PO DAILY 06/08/23 Red Yeast Rice 1 cap PO DAILY 06/08/23 Allergies/Adverse Reactions: Allergies Allergy/AdvReac Type Severity Reaction Status Date / Time bupropion HCl * Allergy Hives Verified 03/30/19 14:17 [From Wellbutrin] Anes History & Medical History - Anesthetic History Anesthesia Complications: reports: No previous complications Family history of Anesthesia Complications: Denies Family history of Malignant Hyperthermia: Denies - Medical History Cardiovascular: reports: High cholesterol Pulmonary: reports: Sleep apnea Gastrointestinal: reports: Colon polyps, Other Urinary: reports: Other Musculoskeletal: reports: Osteoarthritis, Osteopenia Endocrine/Autoimmune: reports: None Skin: reports: Other Smoking Status: Current every day smoker (quit smoking tobacco 5 yrs ago, currently smokes cannabis daily) Psychosocial: reports: Cannabis History of Cancer?: No - Surgical History General: reports: Colonoscopy Eyes Ears Nose Throat (EENT): reports: Tonsil/Adenoidectomy Gynecologic: reports: Tubal ligation, Other Orthopedic: reports: Other Exam General: Alert, Oriented x3, Cooperative Dental: Partials Upper Mouth Openin Fingerbreadth Neck Mobility: Normal Mallampati classification: II Thyromental Distance: 4-6 cm Respiratory: Lungs clear Cardiovascular: Regular rate Plan Anesthesia Type: General Consent for Procedure(s) Verified and Reviewed: Yes Code Status: Attempt Resuscitation ASA classification: 3-Severe systemic disease Is this case an emergency?: No
[2023-06-14] MEDS ORDERED: PROPOFOL 200 MG/20 ML VIAL IVP ONE (07:31)
[2023-06-14] MEDS ORDERED: DEXAMETHASONE 4 MG/ML VIAL ONE (07:31)
[2023-06-14] MEDS ORDERED: LIDOCAINE-PF 2% 10 ML AMP SUBQ ONE (07:31)
[2023-06-14] MEDS ORDERED: KETOROLAC 30 MG/ML VIAL ONE (07:31)
[2023-06-14] MEDS ORDERED: MIDAZOLAM 2 MG/2 ML VIAL ONE (07:31)
[2023-06-14] MEDS ORDERED: ePHEDrine 50 MG/ML VIAL IVP ONE (07:51)
[2023-06-14] MEDS ORDERED: LACTATED RINGERS 1,000 ML IV SCH (08:00)
[2023-06-14] MEDS ORDERED: LACTATED RINGERS 500 ML IV ONE (08:15)
[2023-06-14] MEDS ORDERED: HYDROcod/ACETAM 5/325 MG TABLET PO PRN (08:18)
--- NOTE | 2023-06-14 08:25 | Discharge Plan ---
Discharge Plan Problem Reviewed?: Yes Disposition: Home, Self Care Condition: Good Prescriptions: Docusate Sodium 100Mg Capsule [Colace 100Mg Capsule] 100 mg PO DAILY #7 cap HYDROcod/ACETAM 5/325 [Teachey 5/325] 1 tab PO Q4H PRN #6 tablet PRN Reason: Pain oxyBUTYnin chloride [Oxybutynin Chloride] 5 mg PO Q8H PRN #12 tab PRN Reason: Bladder Spasms Diet: Regular Activity Restrictions: Additional Comments (no heavy lifting >10 lbs for 2 weeks) Shower Restrictions: No Driving Restrictions: No Instruction Topics: Transureth Bladder Tumor Resect Dc No Smoking: If you smoke, Please STOP! Call for help. Follow-up with: Taurus Saldivar MD [Provider Admit Priv/Credential] -
--- NOTE | 2023-06-14 08:27 | OPERATIVE REPORT ---
Operative Report - General Procedure Date: 06/14/23 Planned Procedure: Cystoscopy, transurethral resection of bladder tumor Pre-Op Diagnosis: bladder lesion Procedure Performed: Cystoscopy, transurethral resection of bladder tumor 1cm Post Op Diagnosis: bladder lesion - Procedure Note Primary Surgeon: Yariel Anesthesia Provider: DULCE Banegas Anesthesia Technique: General LMA Pathology: bladder neck biopsy Estimated Blood Loss (mL): 1 Findings: Edematous and calcified appearing lesion on right bladder neck extending to midline trigone Complications: none - Other Other Information/Narrative: After informed consent was obtained the patient was brought to the OR and laid in the supine position. At that point she was anesthetized per anesthesia protocols and prepped and draped in the usual sterile fashion. She was placed in the dorsolithotomy position A formal timeout was performed reconfirming the patient and procedure. A 25 [place] resectoscope was advanced easily into the urinary bladder. She had an edematous and calcified appearing carpets of lesions extending from the right bladder neck to the midline of the trigone. Her ureteral orifices were identified and were not involved. The rest of her bladder mucosa was normal without mucosal abnormalities. Using a loop electrocautery this lesion was resected and sent for analysis. This is about 1 cm in length. Spot cautery was used for hemostasis. The bladder was emptied and a Uro-Jet was placed. This concluded the procedure and the patient tolerated the procedure well. She was brought to the PACU witho ut further incident she will follow-up in 1 week's time for pathology. All counts were correct.
[2023-06-14 09:13] VITALS: BP 134/85; O2SAT 99
--- NOTE | 2023-06-14 15:53 | ANESTHESIA POST OP EVALUATION ---
Anesthesia Post Eval - Post Anesthesia Eval Vitals: Last Vital Signs Temp 36.0 C L 06/14/23 09:11 Pulse 63 06/14/23 09:11 Resp 16 06/14/23 09:11 BP 134/85 H 06/14/23 09:11 Pulse Ox 99 06/14/23 09:11 O2 Flow Rate 0 06/14/23 06:37 CV Function Including HR & BP: Stable Pain Control: Satisfactory Nausea & Vomiting: Negative Mental Status: Baseline Respiratory Status: Airway Patent Hydration Status: Satisfactory Anesthesia Complications: None
== END 2023-06-14 06:24 | disposition home or self-care (01) ==
LOC: SDS 06:23
PROVIDERS: ATTEND Urology
PROC: 0TBB8ZZ Excision of Bladder, Via Natural or Artificial Opening Endoscopic (ICD-10-PCS; principal; 2023-06-14 07:30)
DX: N30.80 Other cystitis without hematuria (principal); E66.9 Obesity, unspecified; G47.30 Sleep apnea, unspecified; Z68.32 Body mass index [BMI] 32.0-32.9, adult; Z87.891 Personal history of nicotine dependence
CPT/HCPCS: 52234; J7120

== ENCOUNTER 2023-08-13 16:18 | Outpatient (CLI) | payer BC ==
--- NOTE | 2023-08-14 08:48 | Ultrasound Report ---
PROCEDURE: Carotid Doppler Complete INDICATIONS: CAD TECHNIQUE: Color and pulse Doppler interrogation was performed of both carotid systems, with image documentation and velocity measurements. COMPARISON: 03/01/2018. FINDINGS: Right side: Brachial blood pressure: 133/76 mm Hg. Common carotid artery peak systolic velocity: 75 cm/sec. Internal carotid artery peak systolic velocity: 142 cm/sec. Previous peak systolic velocity was 97 c m/s. Internal carotid artery end diastolic velocity: 69 cm/sec. External carotid artery peak systolic velocity: 109 cm/sec. ICA/CCA peak systolic ratio: 1.8 . Lopez scale imaging description: Calcific plaque in the bulb and proximal internal carotid artery Percent internal carotid artery stenosis: 50-69% by peak systolic velocity criteria. Vertebral artery: Flow direction is antegrade. Left side: Brachial blood pressure: 129/74 mm Hg. Common carotid artery peak systolic velocity: 69 cm/sec. Internal carotid artery peak systolic velocity: 117 cm/sec. Internal carotid artery end diastolic velocity: 34 cm/sec. External carotid artery peak systolic velocity: 163 cm/sec. ICA/CCA peak systolic ratio: 1.9 . Lopez scale imaging description: Scattered hard plaque Percent internal carotid artery stenosis: Less than 50%. Vertebral artery: Flow direction is antegrade. IMPRESSION: 1. In the right internal carotid artery, there is 50-69 based on peak systolic velocity criteria. Pea k systolic velocity measurement has increased since the previous study. 2. In the left internal carotid artery, there is less than 50% based on peak systolic velocity criter ia. 3. Antegrade blood flow within the right vertebral artery. 4. Antegrade blood flow within the left vertebral artery. The estimate of stenosis included in the report of the imaging study was calculated using the [facility]-end orsed standards of carotid artery stenosis. Reviewed by: Tapan Cervantes MD on 08/14/2023 8:47 AM PDT Approved by: Tapan Cervantes MD on 08/14/2023 8:47 AM PDT Station ID: [id number]
== END 2023-08-13 16:19 | disposition home or self-care (01) ==
LOC: DI 16:18
PROVIDERS: ATTEND Internal Medicine
DX: I65.23 Occlusion and stenosis of bilateral carotid arteries (principal)
CPT/HCPCS: 93880

== ENCOUNTER 2023-08-17 08:21 | Outpatient (CLI) | payer BC ==
--- NOTE | 2023-08-18 11:15 | Mammography Report ---
BILATERAL DIGITAL SCREENING MAMMOGRAM 3D/2D: 08/17/2023 CLINICAL: Routine screening. Comparison is made to exams dated: 05/27/2022 mammogram, 10/26/2018 mammogram, and 10/09/2016 mammogra m - [facility]. There are scattered areas of fibroglandular density in both breasts (category b / 25%-50% glandular t issue). No significant masses, calcifications, or other findings are seen in either breast. There has been no significant interval change. IMPRESSION: NEGATIVE There is no mammographic evidence of malignancy. A 1 year screening mammogram is recommended. Based on the Tyrer Cuzick model (a risk assessment model) the patient's lifetime risk is 4.8% and her 10 year risk is 2.8%. According to the ACR, ACS, and NCCN guidelines, an annual breast MRI exam yosef g with mammogram is recommended if the patient's lifetime risk is 20% or greater. This exam was interpreted at Station ID: [id number]. NOTE: For mammograms, a report in lay terms will be sent to the patient. Approximately 15% of breast malignancies will not be visualized mammographically. In the management of a palpable breast mass, a negative mammogram must not discourage biopsy of a clinically suspicious lesion. Electronically Signed By: Adrian chapman/rosy:08/17/2023 12:21:52 letter sent: No_Letter ACR BI-RADS Category 1: Negative 3341F PARENCHYMAL PATTERN: (A) - The breast(s) demonstrate(s) scattered fibroglandular densities. BI-RADS CATEGORY: (1) - 1 RECOMMENDATION: (ANNUAL) - Recommend routine annual screening mammography. [id number] 1 year screening LATERALITY: (B)
== END 2023-08-17 08:22 | disposition home or self-care (01) ==
LOC: DI 08:21
PROVIDERS: ATTEND Internal Medicine
DX: Z12.31 Encounter for screening mammogram for malignant neoplasm of breast (principal); R92.323 Mammographic fibroglandular density, bilateral breasts

== ENCOUNTER 2024-02-05 09:07 | Outpatient (CLI) | payer MEDICARE, OTHER ==
[2024-02-05 09:37] LABS: BASOPHILS # (AUTO) 0.1 10^3/uL (0.0-0.1); BASOPHILS % (AUTO) 1.1 %; EOSINOPHILS # (AUTO) 0.4 10^3/uL (0.0-0.7); EOSINOPHILS % (AUTO) 6.5 %; HCT - HEMATOCRIT 44.1 % (37.0-47.0); HGB - HEMOGLOBIN 14.1 g/dL (12.0-16.0); LYMPHOCYTES # (AUTO) 1.8 10^3/uL (1.5-3.5); LYMPHOCYTES % (AUTO) 32.5 %; MEAN CORPUSCULAR HEMOGLOBIN 27.5 pg (27.0-31.0); MEAN CORPUSCULAR VOLUME 86.1 fL (81.0-99.0); MEAN PLATELET VOLUME 11.2 fL (7.9-10.8); MONOCYTES # (AUTO) 0.4 10^3/uL (0.0-1.0); MONOCYTES % (AUTO) 7.4 %; NEUTROPHILS # (AUTO) 2.8 10^3/uL (1.5-6.6); NEUTROPHILS % (AUTO) 52.3 %; PLT - PLATELET COUNT 170 10^3/uL (130-450); RED BLOOD COUNT 5.12 10^6/uL (4.20-5.40); RED CELL DISTRIBUTION WIDTH 13.2 % (12.0-15.0); WHITE BLOOD COUNT 5.4 x10^3/uL (4.8-10.8)
[2024-02-05 09:58] LABS: ALBUMIN 4.2 g/dL (3.2-5.5); ALBUMIN/GLOBULIN RATIO 2.1 (1.0-2.2); BILIRUBIN,TOTAL 0.4 mg/dL (0.2-1.0); CALCIUM 9.2 mg/dL (8.5-10.3); CREATININE 0.9 mg/dL (0.6-1.3); POTASSIUM 4.4 mmol/L (3.5-4.5); TOTAL PROTEIN 6.2 g/dL (6.4-8.9)
[2024-02-05 10:02] LABS: ESTIMATED AVERAGE GLUCOSE 131 mg/dL (70-100); HEMOGLOBIN A1c% 6.2 % (4.27-6.07)
== END 2024-02-05 09:08 | disposition home or self-care (01) ==
LOC: LAB 09:07
DX: R20.2 Paresthesia of skin (principal); G60.9 Hereditary and idiopathic neuropathy, unspecified; Z83.3 Family history of diabetes mellitus
CPT/HCPCS: 36415; 80053; 82607; 82746; 83036; 85025